=== PATIENT | female | born 1995 | race Caucasian/White ===

== ENCOUNTER 2023-11-14 15:26 | Inpatient (IN) | payer OTHER ==
[~2023-11-14 15:26] MED LIST: ROPIVACAINE 5 MG/ML 30 ML VIAL ONE; SODIUM CHLORIDE 0.9% 250 ML BAG ONE; fentaNYL (PF) 50 MCG/ML 5 ML AMP ONE
[2023-11-14 16:52] LABS: Basophils # (A) 0.1 k/uL (0-0.2); Basophils % (A) 0 %; Eosinophils # (A) 0.1 k/uL (0-0.7); Eosinophils % (A) 1 %; HCT 36.2 % (34.0-46.0); HGB 11.9 gm/dL (11.4-16.0); Hypochromasia Slight; Lymphocytes # (A) 2.3 k/uL (1.0-4.8); Lymphocytes % (A) 19 %; MCV 75.7 fL (80.0-100.0); Mean Platelet Volume 7.2; Microcytosis Slight; Monocytes # (A) 0.4 k/uL (0-1.0); Monocytes % (A) 4 %; Neutrophils # (A) 9.2 k/uL (1.3-7.7); Neutrophils % (A) 74 %; Platelet Count 367 k/uL (150-450); RBC 4.77 m/uL (3.80-5.40); RDW 15.7 % (11.5-15.5); WBC 12.3 k/uL (3.8-10.6)
[2023-11-14 17:03] LABS: ALT 61 U/L (4-34); AST 39 U/L (14-36); African American GFR (CKD) >90 (>60 ml/min/1.73 sqM); Blood Urea Nitrogen 17 mg/dL (7-17); LDH 238 U/L (120-246); Non-African American GFR(CKD) >90 (>60 ml/min/1.73 sqM); Uric Acid 6.1 mg/dL (3.7-7.4)
[2023-11-14] MEDS ORDERED: ZOLPIDEM 5 MG TAB PO PRN (17:07)
[2023-11-14] MEDS ORDERED: DINOPROSTONE 10 MG INSERT.ER VAGINAL ONE (17:07)
[2023-11-14] MEDS ORDERED: BUTORPHANOL 2 MG/ML 1 ML VIAL IV PRN (17:07)
[2023-11-14 17:08] LABS: Appearance,Urine Cloudy (Clear); Bilirubin,Urine Negative (Negative); Blood,Urine Trace (Negative); Color,Urine Light Yellow; Glucose,Urine (UA) Negative (Negative); Ketones,Urine Negative (Negative); Leukocyte Esterase,Urine Large (Negative); Mucus,Urine Occasional /hpf; Nitrite,Urine Negative (Negative); PH, Urine 5.5 (5.0-8.0); Protein,Urine 1+ (Negative); RBC,Urine 2 /hpf (0-5); Squamous Epithelial Cell,Urine 8 /hpf (0-4); Urobilinogen,Urine <2.0 mg/dL (<2.0); WBC,Urine 13 /hpf (0-5)
[2023-11-14] MEDS ORDERED: LACTATED RINGERS 1,000 ML IV SCH (17:15)
[2023-11-14 17:44] LABS: Creatinine,Urine Random 115.3 mg/dL; Protein/Creatinine Ratio,Urine 1.11
[2023-11-14] MEDS ORDERED: NALBUPHINE 10 MG/ML (10 ML MDV) IV PRN (19:24)
--- NOTE | 2023-11-14 19:31 | P.HPOB ---
History of Present Illness H&P Date: 11/14/23 Chief Complaint: 38-6/7 weeks, induced hypertension The patient is a 28-year-old 1 para 0 admitted at 38-6/7 weeks, sent from the office, secondary to elevated blood pressure in the office with edema and 1+ protein on urine dip. She is thought to have a relatively large baby the ultrasound showed growth at the 80th percentile. She additionally has gesta tional diabetes which is been well controlled with diet. On labor and delivery, all signs are reassuring with category 1 heart rate tracing. Blood pressures at rest have been stable in a range not requiring treatment. Laboratory workup for preeclampsia is essentially negative. The decision was made together to proceed with delivery secondary to all of the above factors. The patient has unfavorable cervix and she has been admitted to undergo Cervidil cervical ripening with subsequent induction tomorrow morning. Group B strep status is negative. Obstetrical history: 1 para 0 with current statistics listed above. EDC was determined by last menstrual period and confirmed by seven-week ultrasound. Laboratory workup demonstrates a blood type of O+ with a negative antibody screen. Rubella status is nonimmune. The remainder of the laboratory workup was within normal limits. Early Glucola was normal while second trimester Glucola was elevated and subsequent three-hour glucose tolerance test made the diagnosis of gestational diabetes. Blood sugars have been well controlled throughout with diet alone. Group B strep status is negative. Gynecologic history: Unremarkable with no history of any infections to include STDs. Review of Systems Review of systems is confined to history of present illness. Past Medical History Past Medical History: No Reported History History of Any Multi-Drug Resistant Organisms: None Reported Past Surgical History: No Surgical Hx Reported Past Anesthesia/Blood Transfusion Reactions: No Reported Reaction Past Psychological History: No Psychological Hx Reported Smoking Status: Never smoker Past Alcohol Use History: None Reported Past Drug Use History: None Reported - Past Family History Father Family Medical History: Hypertension Medications and Allergies Home Medications Medication Instructions Recorded Confirmed Type No Known Home Medications 11/14/23 11/14/23 History Allergies Allergy/AdvReac Type Severity Reaction Status Date / Time No Known Allergies Allergy Verified 11/14/23 16:13 Exam Vital Signs Temp Pulse Resp BP 11/14/23 18:14 88 16 127/84 11/14/23 16:12 97.9 F 78 16 133/91 Intake and Output 11/14/23 11/14/23 11/14/23 06:59 14:59 22:59 Other: Weight 102.965 kg In all, this is a well-developed, well-nourished white female in no acute distress. Her heart has a regular rhythm and rate without murmur. Her lungs are clear to auscultation bilaterally in all magana. Her abdomen is gravid, nondistended, has normal active bowel sounds, soft, nontender, and without any palpable masses aside from uterine fundus. Her extremities are without any cyanosis or clubbing though there is 1+ bilateral lower extremity edema. Digital cervical examination demonstrates her cervix to be fingertip dilated, 70% effaced, the vertex in presentation at -3 station. Cervidil is placed in the posterior vaginal fornix per protocol. Results Result Diagrams: 11/14/23 16:00 11/14/23 16:00 Abnormal Lab Results - Last 24 Hours (Table) 11/14/23 11/14/23 11/14/23 Range/Units 16:00 16:00 16:00 WBC 12.3 H (3.8-10.6) k/uL MCV 75.7 L (80.0-100.0) fL RDW 15.7 H (11.5-15.5) % Neutrophils # 9.2 H (1.3-7.7) k/uL AST 39 H (14-36) U/L ALT 61 H (4-34) U/L Urine Appearance Cloudy H (Clear) Urine Protein 1+ H (Negative) Urine Blood Trace H (Negative) Ur Leukocyte Esterase Large H (Negative) Urine WBC 13 H (0-5) /hpf Ur Squamous Epith Cells 8 H (0-4) /hpf Urine Mucus Occasional H (None) /hpf Assessment and Plan (1) Unfavorable cervix in term Current Visit: Yes Status: Acute Code(s): O34.40 - MATERNAL CARE FOR OTH ABNLT OF CERVIX, UNSP TRIMESTER SNOMED Code(s): 707697144 (2) Gestational hypertension Current Visit: Yes Status: Acute Code(s): O13.9 - GESTATIONAL HTN W/O SIGNIFICANT PROTEINURIA, UNSP TRIMESTER SNOMED Code(s): 75767159 Plan: The patient is admitted for Cervidil cervical ripening with subsequent Pitocin induction if necessary. Cervidil has been placed. She will have intermittent monitoring overnight unless labor ensues or vital signs taken otherwise. She will have otherwise close maternal surveillance and expectant management will be practiced. Intention would be to begin Pitocin augmentation tomorrow at 6 AM with subsequent artificial rupture of membranes. She is a good candidate for either IV, epidural, or nitrous analgesia, whichever she may choose.
[2023-11-14 21:50] LABS: Glucose,Whole Blood 106 mg/dL (70-110)
[2023-11-15] MEDS ORDERED: LIDOCAINE 0.5% (PF) 5 MG/ML (50 ML SDV) SQ PRN (05:51)
[2023-11-15] MEDS ORDERED: TRANEXAMIC 1,000 MG/100ML-NACL 1,000 MG in EMPTY BAG 1 BAG IV PRN (05:51)
[2023-11-15] MEDS ORDERED: METHYLERGONOVINE 0.2 MG/ML 1 ML AMP IM PRN (05:51)
[2023-11-15] MEDS ORDERED: miSOPROStoL 200 MCG TAB PO PRN (05:51)
[2023-11-15] MEDS ORDERED: OXYTOCIN 10 UNIT/ML 1 ML VIAL IM PRN (05:51)
[2023-11-15] MEDS ORDERED: CARBOPROST TROMETHAMINE 250 MCG/ML 1 ML AMP IM PRN (05:51)
[2023-11-15] MEDS ORDERED: TERBUTALINE 1 MG/ML VIAL SQ PRN (05:51)
[2023-11-15] MEDS ORDERED: OXYTOCIN 30 UNITS/500 ML NS 30 UNIT in SALINE 1 500ML.BAG IV SCH ×2 (06:00→23:15)
[2023-11-15] MEDS: LACTATED RINGERS 1,000 ML IV SCH ×3 (06:53→15:29)
[2023-11-15] MEDS ORDERED: ROPIVACAINE 225 MG, fentaNYL (PF). 450 MCG in SODIUM CHLORIDE 0.9% 171 ML EPIDURAL ONE (13:14)
--- NOTE | 2023-11-15 13:17 | P.ANPRN ---
Procedure Note - Anesthesia - Epidural/Spinal Epidural Continuous Date of Procedure: 11/15/23 Procedure Start Time: 12:35 Procedure Stop Time: 12:42 Location of Patient: OB Indication: Analgesia, Requested by Surgeon Sedation Type: Awake Preparation: Sterile Dressing Position: Sitting Catheter Depth at Skin (cm): 12 Catheter: Indwelling Needle Guage: 18 Blood Aspirated: No Pain Paresthesia on Injection Noted: No Events: Uneventful and Well Tolerated (One attempt at L1-L2 interspinous space, loss of resistant at 7 cm, catheter 12 cm.)
[2023-11-15] MEDS ORDERED: CITRIC ACID-SODIUM CITRATE 15 ML CUP PO ONE (22:01)
[2023-11-15] MEDS ORDERED: OXYTOCIN 30 UNITS/500 ML NS BAG IV ONE (22:15)
[2023-11-15] MEDS ORDERED: fentaNYL (PF) 50 MCG/ML 2 ML AMP ONE (22:15)
[2023-11-15] MEDS ORDERED: MORPHINE SULFATE (PF) 0.3 MG/0.3 ML SYR ONE (22:15)
[2023-11-15] MEDS ORDERED: METOCLOPRAMIDE 5 MG/ML 2 ML VIAL IVP PRN (23:05)
[2023-11-15] MEDS ORDERED: diphenhydrAMINE 50 MG/ML 1 ML VIAL IVP PRN ×2 (23:05)
[2023-11-15] MEDS ORDERED: LANOLIN CREAM 5 GM TUBE TOPICAL PRN (23:05)
[2023-11-15] MEDS ORDERED: ONDANSETRON 4 MG/2 ML VIAL IVP PRN (23:05)
[2023-11-15] MEDS ORDERED: NALOXONE 0.4 MG/ML 1 ML VIAL IV PRN (23:05)
[2023-11-15] MEDS ORDERED: diphenhydrAMINE 50 MG CAP PO PRN (23:05)
[2023-11-15] MEDS ORDERED: diphenhydrAMINE 25 MG CAP PO PRN (23:05)
[2023-11-15] MEDS ORDERED: ZOLPIDEM 5 MG TAB PO PRN (23:05)
--- NOTE | 2023-11-15 23:15 | P.OP ---
Date of Procedure: 11/15/23 Preoperative Diagnosis: #1. 39-0/7 weeks, induction #2. Gestational hypertension #3. Gestational diabetes #4. Arrest of descent in the second stage #5. Occiput posterior presentation Postoperative Diagnosis: Same Procedure(s) Performed: #1. Primary low-transverse section Anesthesia: epidural Surgeon: Bryce Hurtado General Utility Worker #1: Ben Duenas Estimated Blood Loss (ml): 646 IV fluids (ml): 1,000 Urine output (ml): 100 Pathology: none sent Condition: stable Disposition: floor Operative Findings: Preoperatively, the patient had made slow but steady progress through the active phase of labor to complete and -2 station. She pushed over the course of approximately 1 hour with no descent of the head below -2 station. The fetus was thought to be in right occiput posterior position. The patient opted to proceed with primary low-transverse section. She is taken to the operating room where she was delivered of a viable 8 lbs. 12 oz. baby boy with Apgars of 9 at 1 minute and 9 at 5 minutes in the right occiput posterior position. The placenta was delivered manually, intact, and grossly normal with a grossly normal three-vessel cord. The uterus, tubes, and ovaries were entirely normal to inspection. Urine was clear throughout the case. The head was noted to be deep in the pelvis with no room for further descent. Preoperatively, the patient was also thought to have a large for gestational age fetus and was noted to have a narrow pubic arch. Description of Procedure: The patient was prepped and draped in usual fashion after epidural analgesia was bolused by the anesthesiologist. A Pfannenstiel incision was made and extended into the abdominal cavity without difficulty. The bladder peritoneum was noted to be significantly distal to the intended site of incision was left intact. A 2 cm incision was made in the transverse plane to enter the uterus at which time light meconium-stained fluid was again noted as had been noted during labor. The incision was extended in both directions using the bandage scissors. The head was encountered deep within the pelvis in the right occiput posterior position. It was leveraged up and through the incision where the nose and mouth were thoroughly suctioned. The remainder of the infant was delivered onto the field where the nose and mouth were again suctioned, the cord doubly clamped and cut and the passed for resuscitative measures with weight and Apgars as noted above. A segment of cord was doubly clamped, cut, and set aside should cord gases become necessary. The placenta was delivered manually and intact as noted above. The uterus was exteriorized and the interior cavity of the uterus swept of any remaining placental or membranous fragments. The margins of the uterine incision were grasped with Pierce clamps and the incision closed in 2 layers. The first layer was a running locking stitch of 0 chromic catgut followed by a running imbricating stitch of 0 chromic catgut, each from margin to margin. Hemostasis appeared to be excellent. The posterior cul-de-sac was suctioned with a guard followed by laparotomy sponge and the uterine and ovarian findings were normal as noted above. The uterus was replaced within the abdominal cavity and the gutters swept of any remaining blood, fluid, or clot. As a result significant amount of small intestine that was bulging into the surgical field, the decision was made to close the parietal peritoneum which was closed in a running fashion with 2-0 Vicryl. The muscle layer was examined and found to be hemostatic. The fascia was closed with a single running stitch of 0 Vicryl proceeding from margin to margin. The subcutaneous tissues were irrigated, made hemostatic with the Bovie, and reapproximated with a running stitch of 30 plain catgut. The skin was reapproximated with a running subcuticular stitch of 4-0 Vicryl from margin to margin followed by half-inch Steri-Strips placed with Mastisol. Quantitative blood loss for the case was 646 mL. There were no complications. All sponge, instrument, needle counts were correct. The patient tolerated the procedure well and proceeded to the recovery room in stable condition. Both mother and infant are resting comfortably in recovery.
[2023-11-16] MEDS: ACETAMINOPHEN TAB 500 MG TAB PO SCH ×4 (00:53→21:32)
[2023-11-16] MEDS: LACTATED RINGERS 1,000 ML IV SCH ×5 (02:00→16:14)
[2023-11-16] MEDS ORDERED: MEASLES-MUMPS-RUBELLA VACC/PF 12,500 UNIT/0.5 ML VIAL SQ ONE (02:29)
--- NOTE | 2023-11-16 06:21 | P.PN ---
Progress Note - Text 11/16/23 556am 28-year-old female status post with spinal with Duramorph why the epidural. Patient seen and evaluated for postop pain control she has a VAS of 2 with no complaints of nausea she has mild pruritus which should subside soon
[2023-11-16] MEDS: KETOROLAC 15 MG/ML 1 ML VIAL IVP SCH ×2 (06:46→13:16)
[2023-11-16] MEDS: IBUPROFEN 600 MG TAB PO SCH ×3 (07:20→18:59)
[2023-11-16 07:39] LABS: Basophils % (A) 0 %; Eosinophils # (A) 0.1 k/uL (0-0.7); Eosinophils % (A) 0 %; HCT 29.6 % (34.0-46.0); Hypochromasia Slight; Lymphocytes # (A) 2.6 k/uL (1.0-4.8); Lymphocytes % (A) 18 %; MCH 24.4 pg (25.0-35.0); MCHC 32.3 g/dL (31.0-37.0); MCV 75.3 fL (80.0-100.0); Mean Platelet Volume 7.6; Microcytosis Slight; Monocytes # (A) 0.7 k/uL (0-1.0); Monocytes % (A) 5 %; Neutrophils # (A) 11.1 k/uL (1.3-7.7); Neutrophils % (A) 76 %; Platelet Count 281 k/uL (150-450); RBC 3.93 m/uL (3.80-5.40); RDW 15.7 % (11.5-15.5); WBC 14.7 k/uL (3.8-10.6)
[2023-11-16 07:41] LABS: HGB 9.6 gm/dL (11.4-16.0)
[2023-11-16] MEDS: SENNOSIDES-DOCUSATE SODIUM 1 EACH TAB PO SCH ×2 (08:24→21:33)
--- NOTE | 2023-11-16 11:06 | P.PNOBGPC ---
Subjective - Subjective Patient reports: Reports appetite normal, Reports voiding normally (Has not voided yet, catheter out for approximately 4 hours.), Reports pain well controlled, Reports ambulating normally [place]: doing well Objective - Vital Signs Latest vital signs: Vital Signs Temp Pulse Pulse Resp BP Pulse Ox 11/16/23 07:50 98.3 F 79 16 134/82 99 11/16/23 04:00 98.8 F 95 16 148/81 95 11/16/23 01:05 98.5 F 96 16 138/76 95 11/16/23 00:35 105 H 16 153/78 99 11/16/23 00:05 110 H 16 150/81 11/16/23 00:00 16 11/15/23 23:50 92 16 142/75 11/15/23 23:35 99.9 F H 100 16 141/82 11/15/23 23:20 103 H 16 161/84 11/15/23 23:05 91 16 148/68 Intake and Output 11/15/23 11/16/23 11/16/23 22:59 06:59 14:59 Output Total 1368 Balance -1368 Output: Urine 600 Estimated Blood Loss 646 Output, Quantitative 122 Blood Loss Other: Voiding Method Indwelling Catheter # Voids 0 - Exam Chest: Normal S1, Normal S2 Extremities: Present: normal Abdomen: Present: normal appearance, soft. Absent: distention, tenderness Incision: Present: normal, dry, intact Uterus: Present: normal, firm (The uterine fundus is tonic and appropriate tender just below the umbilicus.) - Labs Labs: Abnormal Lab Results - Last 24 Hours (Table) 11/16/23 Range/Units 06:52 WBC 14.7 H (3.8-10.6) k/uL Hgb 9.6 L D (11.4-16.0) gm/dL Hct 29.6 L (34.0-46.0) % MCV 75.3 L (80.0-100.0) fL MCH 24.4 L (25.0-35.0) pg RDW 15.7 H (11.5-15.5) % Neutrophils # 11.1 H (1.3-7.7) k/uL Assessment and Plan (1) Unfavorable cervix in term Current Visit: Yes Status: Acute Code(s): O34.40 - MATERNAL CARE FOR OTH ABNLT OF CERVIX, UNSP TRIMESTER SNOMED Code(s): 083066054 (2) Gestational hypertension Current Visit: Yes Status: Acute Code(s): O13.9 - GESTATIONAL HTN W/O SIGNIFICANT PROTEINURIA, UNSP TRIMESTER SNOMED Code(s): 34936492 (3) S/P section Current Visit: Yes Status: Acute Code(s): Z98.891 - HISTORY OF UTERINE SCAR FROM PREVIOUS SURGERY SNOMED Code(s): 166871513 Plan: Continue routine and postoperative care. I would anticipate discharge home tomorrow pending applications. I have encouraged her to ambulate in the hallways routinely.
[2023-11-17] MEDS: IBUPROFEN 600 MG TAB PO SCH ×4 (00:28→20:00)
[2023-11-17] MEDS: ACETAMINOPHEN TAB 500 MG TAB PO SCH ×3 (06:44→15:48)
[2023-11-17] MEDS: SENNOSIDES-DOCUSATE SODIUM 1 EACH TAB PO SCH ×2 (08:55→20:03)
[2023-11-17] MEDS: SIMETHICONE 80 MG CHEWABLE PO PRN ×2 (09:08→20:06)
--- NOTE | 2023-11-17 10:55 | P.PNOBGPC ---
Subjective - Subjective Principal diagnosis: s/p primary section Interval history: The patient is doing well this morning and had no acute events overnight. She has no complaints this morning. She did have mild range blood pressures overnight. She reports minimal lochia, passing flatus, voiding without difficulty, ambulating, and eating/drinking without nausea or vomiting. She is her infant without difficulty. She denies chest pain, shortness of breathing, fevers, or chills overnight. She denies pain or swelling in the legs. Patient denies headaches, visual disturbances, and right upper quadrant pain. Patient reports: Reports appetite normal, Reports voiding normally, Reports pain well controlled, Reports ambulating normally : doing well Objective - Vital Signs Latest vital signs: Vital Signs Temp Pulse Pulse Resp BP Pulse Ox 11/17/23 08:00 97.7 F 84 20 140/93 11/17/23 04:00 98.1 F 66 18 140/78 11/17/23 00:00 98.4 F 87 18 128/73 11/16/23 20:00 98.5 F 92 18 134/80 11/16/23 16:00 98.0 F 95 16 159/80 99 11/16/23 12:00 98.0 F 90 16 143/81 98 Intake and Output 11/16/23 11/17/23 11/17/23 22:59 06:59 14:59 Intake Total 360 Output Total 700 Balance -700 360 Intake: Oral 360 Output: Urine 700 Other: # Voids 1 2 2 - Exam Extremities: Present: normal Abdomen: Present: normal appearance, soft Incision: Present: normal, dry, intact Uterus: Present: normal, firm Assessment and Plan Assessment: 28 year old now POD#2 s/p section due to arrest of active labor Plan: 1. Postoperative. Patient meeting all postoperative milestones appropriately. 2. Gestational HTN. Mild range BPs overnight. Will start Procardia XL 30mg daily. Continue to monitor. 3. Viable male infant. Having feeding difficulties. Will plan to post-pone circumcision until tomorrow to focus on nursing. Dispo: Continue to monitor blood pressures and feeding. Anticipate discharge home tomorrow.
[2023-11-17] MEDS ORDERED: NIFEdipine XL 30 MG TAB.ER.24 PO SCH (11:00)
[2023-11-18] MEDS: ACETAMINOPHEN TAB 500 MG TAB PO SCH ×3 (00:49→08:23)
[2023-11-18] MEDS: IBUPROFEN 600 MG TAB PO SCH ×3 (00:53→12:02)
[2023-11-18] MEDS: SENNOSIDES-DOCUSATE SODIUM 1 EACH TAB PO SCH (08:23)
[2023-11-18 08:34] VITALS: PULSE 103; RESP 18; TEMP 98.2
--- NOTE | 2023-11-18 09:22 | P.DS ---
Providers Date of admission: 11/14/23 18:03 Expected date of discharge: 11/18/23 Attending physician: Bryce Hurtado Primary care physician: Bryce Hurtado [facility] Hospital Course: Ms. Lazaro is a 28 year old now POD#3 s/p primary section after arrest of descent in the second stage. Her was complicated by gestational diabetes and gestational hypertension. Her surgery was uncomplicated and her course has been going well. She has had mild-range blood pressures for which Procardia XL 30mg qDay was started and increased to 60mg qDay today. The patient denies headache, visual disturbances, and RUQ pain. The patient is doing well this morning and had no acute events overnight. She has no complaints this morning. She reports minimal lochia, passing flatus, voiding without difficulty, ambulating, and eating/drinking without nausea or vomiting. Infant doing well at bedside, s/p circumcision. She denies chest pain, shortness of breathing, fevers, or chills overnight. She denies pain or swelling in the legs. Postoperative restrictions are reviewed with the patient including pelvic rest for 6 weeks, no lifting heavier than 15 pounds for 6 weeks. The patient is encouraged to call the office if she experiences any heavy bleeding, foul- smelling discharge, breast complaints, or any if she has any other concerns. She will follow up in the office with Dr. Hurtado in 1 weeks for blood pressure check. She requests Motrin and Tylenol for pain management at home. All questions are answered. Assessment: 28 year old POD#3 s/p 1 c/s 2/2 arrest of descent in the second stage of labor Patient Condition at Discharge: Good Plan - Discharge Summary Discharge Rx Participant: Yes New Discharge Prescriptions: New Ibuprofen [Motrin] 600 mg PO Q6HR PRN #30 tab PRN Reason: Mild Pain (Scale 1 To 3) Acetaminophen Tab [Tylenol] 650 mg PO Q6H PRN #30 tab PRN Reason: Mild Pain (Scale 1 To 3) Discharge Medication List Acetaminophen Tab [Tylenol] 650 mg PO Q6H PRN #30 tab 11/18/23 [Rx] Ibuprofen [Motrin] 600 mg PO Q6HR PRN #30 tab 11/18/23 [Rx] Follow up Appointment(s)/Referral(s): Bryce Hurtado MD [Primary Care Provider] - 1 Week (blood pressure check) Activity/Diet/Wound Care/Special Instructions: Instructions 1. Do not begin any exercise program for 3 weeks. 2. Do not resume sexual relations for 6 weeks or longer if uncomfortable. 3. You may take tub baths or showers at any time. 4. You may use tampons if desired after 6 weeks. 5. Keep any areas repaired with stitches clean and dry. 6. If you are not nursing, wear a good fitting, supportive bra during the day and limit fluid intake for at least 1 week to prevent breast engorgement. 7. Call the office, , within the next week to make appointment for your 6 week checkup if it has not already been made. 8. Report any of the following occurrences to the doctor promptly: a. Heavy, excessive bleeding b. Chills, fever c. Burning or frequency of urination d. Pain or redness and breasts if nursing e. Increasing pain or swelling of vulva (stitches). In addition to the above instructions, the following additional should be followed: 1. No heavy lifting or straining (exercising) until after 6 week checkup. 2. Keep abdominal incision clean and dry: You may wear a dressing if more comfortable. 3. Make office appointment for 2 weeks after delivery date. Discharge Disposition: HOME SELF-CARE
[2023-11-18 14:13] VITALS: BP 133/76
== END 2023-11-18 14:33 | disposition home or self-care (01) | DRG 788 ==
LOC: FBPOP 15:26 → 4FBP 18:03
PROVIDERS: ADMIT Obstetrics & Gynecology; ATTEND Obstetrics & Gynecology
PROC: 3E0P7VZ Introduction of Hormone into Female Reproductive, Via Natural or Artificial Opening (ICD-10-PCS; principal; 2023-11-15 22:12)
PROC: 10D00Z1 Extraction of Products of Conception, Low, Open Approach (ICD-10-PCS; principal; 2023-11-15 22:12)
DX: O13.4 Gestational [pregnancy-induced] hypertension without significant proteinuria, complicating childbirth (principal); O24.429 Gestational diabetes mellitus in childbirth, unspecified control; O32.8XX0 Maternal care for other malpresentation of fetus, not applicable or unspecified; O62.1 Secondary uterine inertia; Z37.0 Single live birth; Z3A.38 38 weeks gestation of pregnancy; Z28.310 Unvaccinated for COVID-19; Z28.21 Immunization not carried out because of patient refusal
CPT/HCPCS: 36415; 59025; 81001; 82565; 82570; 83615; 84156; 84450; 84460; 84520; 84550; 85025; 86850; 86900; 86901; 90707